=== PATIENT | male | born 2000 ===

== ENCOUNTER 2024-11-03 17:14 | Emergency (ER) | payer SELFPAY ==
[~2024-11-03] VITALS: Ht 165.1 cm; Wt 87.0 kg
[2024-11-03 17:18] VITALS: BP 123/75; PULSE 60; RESP 18; O2SAT 100
[2024-11-03 17:46] LABS: MEAN PLATELET VOLUME 9.2 FL (7.4-10.4); RED CELL DISTRIBUTION WIDTH 13.7 % (11.5-14.5)
[2024-11-03 18:07] LABS: CREATININE 0.81 MG/DL (0.60-1.10); TOTAL CARBON DIOXIDE 22.6 MMOL/L (24-32); eCRCL 122 ML/MIN; eGFR > 90 ML/MIN
[2024-11-03 18:30] LABS: ETHANOL < 10 MG/DL (<10)
--- NOTE | 2024-11-03 18:47 | Physician Documentation ---
History of Present Illness ~ Chief Complaint: Mental Health Eval Stated Complaint: PHSYC PROBLEMS Time Seen by MD: 18:39 OK to notify your PCP?: Yes Source: patient Mode of Arrival: POV Exam Limitations: no limitations HPI 24-year-old male who presents requesting a place to stay. He states that yesterday he was feeling very hopeless and then does have some superficial cutting adams to his left forearm that he states he was doing to relieve stress not trying to end his life. He states that he does not have any friends or family nearby and he has plans to purchase a train ticket to go home to [place] in the morning. He is requesting to either stay here or stay at the [place] until his train leaves. He denies any suicidal ideation or homicidal ideation. He does have a history of borderline personality disorder, schizoaffective disorder, depression, anxiety, PTSD. He does take Abilify Maintena monthly and states he is a couple of days overdue. He has plans to receive his injection as soon as he gets home to [place]. Medication Reconciliation Allergies: Coded Allergies: No Known Allergies (Unverified , 11/03/24) Past Medical History Past Medical History: Anxiety, Depression, Schizophrenia Review of Systems All Other Systems at this time: Reviewed and Negative Physical Exam Vital Signs: RN Vital Signs have been reviewed: Yes, Temperature: 97.8, Source: Temporal, Heart Rate: 60, Respiratory Rate: 18, BP: 123/75, Pulse Oximetry: 100, Weight: 87.000 Oxygen Flow Rate: 0 Pulse Oximetry Reflects: adequate oxygenation Physical Exam General: Alert, no distress. HEENT: No injection, moist mucous membranes. Neck: Full range of motion. Respiratory: No respiratory distress, equal chest rise and fall. Chest: No accessory muscle use. Cardiovascular: Regular rate and rhythm. Gastrointestinal: Nondistended. Extremities: Normal range of motion, no deformity. Neurologic: Oriented x4. Psychiatric: Normal mood and affect. Skin: Normal color, warm and dry. Progress Results/Orders Reviewed/noted all lab results: Yes Results/Orders Vital Signs 11/03/24 17:18 Temp 97.8 Pulse 60 Resp 18 B/P (MAP) 123/75 Pulse Ox 100 O2 Flow Rate 0 Laboratory Tests Test 11/03/24 17:25 11/03/24 17:31 SARS-CoV-2 Antigen (Rapid) Negative White Blood Count 8.9 Red Blood Count 5.12 Hemoglobin 14.9 Hematocrit 43.9 Mean Corpuscular Volume 85.7 Mean Corpuscular Hemoglobin 29.1 Mean Corpuscular Hemoglobin Concent 34.0 Red Cell Distribution Width 13.7 Platelet Count 294 Mean Platelet Volume 9.2 Neutrophils (%) (Auto) 49.7 Lymphocytes (%) (Auto) 38.9 Monocytes (%) (Auto) 7.4 Eosinophils (%) (Auto) 3.4 Basophils (%) (Auto) 0.6 Neutrophils # (Auto) 4.4 Lymphocytes # (Auto) 3.4 Monocytes # (Auto) 0.7 Eosinophils # (Auto) 0.3 Basophils # (Auto) 0.0 CBC Comment Sodium Level 140 Potassium Level 4.0 Chloride Level 105 Carbon Dioxide Level 22.6 L Anion Gap 12 Blood Urea Nitrogen 9 Creatinine 0.81 Estimated GFR/1.73 m2 > 90 BUN/Creatinine Ratio 11.1 Glucose Level 115 H Calcium Level 9.5 Albumin 4.1 Thyroid Stimulating Hormone (TSH) 1.92 Chemistry Comments Ethyl Alcohol Level < 10 Medical Decision Making Additional info obtained from: old records Findings 24-year-old male presents with crusting a safe place to stay. He states that yesterday he was feeling very hopeless and did have some superficial cutting adams on his arm. He denies any plans to end his life. He states that he is very depressed staying in this area and is wanting to go back home with family in [place]. He actively purchased a train ticket which leaves at 3:00 a.m. tomorrow while I was in his room and he has plans to stay in our lobby and then have it taxi cab over to the train station. We spoke that he is not homicidal or suicidal in his simply going through life stress. He has a psychiatrist that he follows up with an [place] as he will need his Abilify injection once he arrives. He denies hearing any voices currently. I will not place this patient on a 1799 hold as he is not suicidal or homicidal or gravely disabled. We discussed with the hold is an he states he has been on hold in the past but the main concern for him as he just wants to get home to his family. He was given follow up and return instructions. Differential Dx:Considerations: Include: Anxiety, Depression, Homicidal, Substance abuse, Suicidal Departure Disposition: 01 HOME / SELF CARE / HOMELESS Impression: Primary Impression: Depression Condition: Stable Discharge Instructions: Depression, Adult Additional Instructions: Continue to seek care in [place] for your mental health. Return to any local ER if you are feeling suicidal or homicidal. Referrals: NO PRIMARY CARE PROVIDER (PCP) Education Educated: Patient Educated regarding: diagnosis, treatment, prognosis, need for follow up Additional Comment Medical Screen Exam This patient recieved a medical screening examination. After reviewing the individual's medical complaints with presenting symptoms and performing an appropriate physical examination, it was determined that no immediate life- threatening emergency medical condition is present. This individual is also not a women having contractions. Signature Scribe Signature: . Attestation: Scribed for Emergency,Department by Tamanna Fitzpatrick NP . 11/03/24 18:44 Parts of this note were created using [employer] voice recognition software program. While efforts were made to correct any mistakes made by this voice recognition software program, nonsensical phrases may remain in this note. In addition, there may be errors and syntax, grammar, content and spelling. TAMANNA CACERES [facility] Nov 03, 2024 18:47
[2024-11-03 18:58] VITALS: TEMP 97.8
== END 2024-11-04 05:47 | disposition home or self-care (01) ==
LOC: ER 17:15
DX: F32.A Depression, unspecified (principal); F25.9 Schizoaffective disorder, unspecified; F60.3 Borderline personality disorder; Z20.822 Contact with and (suspected) exposure to COVID-19
CPT/HCPCS: 36415; 80048; 80320; 84443; 85025; 87811; 99283